=== PATIENT | male | born 1965 | race Caucasian/White ===

== ENCOUNTER 2017-11-09 13:50 | Outpatient (CLI) | payer BC | END 2017-11-09 23:59 | disposition home or self-care (01) | DX: I83.018 Varicose veins of right lower extremity with ulcer other part of lower leg (principal); L97.819 Non-pressure chronic ulcer of other part of right lower leg with unspecified severity; E78.5 Hyperlipidemia, unspecified ==

== ENCOUNTER 2017-11-16 14:10 | Outpatient (CLI) | payer BC | END 2017-11-16 23:59 | disposition home or self-care (01) | LOC: WOU 14:10 | PROVIDERS: ATTEND Surgery | DX: I83.018 Varicose veins of right lower extremity with ulcer other part of lower leg (principal); L97.818 Non-pressure chronic ulcer of other part of right lower leg with other specified severity; E78.5 Hyperlipidemia, unspecified; Z98.890 Other specified postprocedural states; Z88.0 Allergy status to penicillin | CPT/HCPCS: A6209; A6402; A6452; G0463 ==